=== PATIENT | female | born 1985 | race Caucasian/White ===

== ENCOUNTER → 2022-10-02 | Outpatient (CLI) | payer BC, SELFPAY ==
[2022-10-09 17:01] LABS: HPV APTIMA, High Risk Negative (Negative)
== END | disposition home or self-care (01) ==
PROVIDERS: Visit Provider Obstetrics & Gynecology
DX: Z12.4 Encounter for screening for malignant neoplasm of cervix (principal)
CPT/HCPCS: 87624; 88175; G0145

== ENCOUNTER → 2022-10-15 | Outpatient (CLI) | payer BC, SELFPAY ==
[2022-10-15 09:39] LABS: Cholesterol 168 mg/dL (200); Estradiol 23.9 pg/mL; Follicle Stimulating Hormone 17.9 mIU/mL; High Density Lipoprotein 64 mg/dL; Luteinizing Hormone 6.7 mIU/mL; Thyroid Stim Hormone (TSH) 1.41 uIU/mL (0.358-3.74); Triglycerides 76 mg/dL; Very Low Density Lipoprotein 15 mg/dL (5-40)
== END | disposition home or self-care (01) ==
LOC: LAB 07:56
PROVIDERS: Visit Provider Obstetrics & Gynecology
DX: Z13.220 Encounter for screening for lipoid disorders (principal); N95.1 Menopausal and female climacteric states
CPT/HCPCS: 36415; 80061; 82627; 82670; 83001; 83002; 84443; 82626

== ENCOUNTER 2022-12-10 02:51 | Emergency (ER) | payer BC, SELFPAY ==
[2022-12-10 02:53] VITALS: BP 123/79; PULSE 60; RESP 17; TEMP 36.6; O2SAT 100; BMI 24.8
--- NOTE | 2022-12-10 05:34 | EDS_ITS ---
HPI History of Present Illness Chief Complaint: Bite Narrative Narrative: Patient is a 37-year-old female presenting for concerns of bat exposure. Patient states she woke up tonight and noticed a bat in her room. She does not think she came in contact with it. She did notice what looked like bat droppings in her bathroom earlier today. Patient did develop a small abrasion/rash on the lateral aspect of her left ankle a month ago. She has an appointment this coming week to follow-up with dermatology. She is now concerned that that might have been a bat bite as well however she really does not know. She never been treated for rabies before. No other complaints at this time. States she is in her normal state of health. [facility] Home Medications NK 12/10/22 [History Last Taken Unknown] Allergy/AdvReac Type Severity Reaction Status Date / Time No Known Allergies Allergy Verified 12/10/22 02:52 Family History Grandfather Diabetes Prostate cancer Social History Smoking Status: Never smoker alcohol intake: current details: occasionally substance use type: does not use caffeine: Yes what type of physical activity do you participate in: running, yoga and aerobics frequency: 3-4 times per week seatbelt use: always do you feel safe at home: Yes additional social history: Single ROS ROS ED Constitutional Constitutional ED: Denies chills or fever(s) Eyes Eyes: Denies change in vision Respiratory/Chest Respiratory/Chest: Denies cough Gastrointestinal Gastrointestinal: Denies nausea or vomiting Musculoskeletal Musculoskeletal: Denies arthralgias or myalgias Integumentary Reports rash Neurologic Neurologic: Denies headache(s) Psychiatric Psychiatric: Denies anxiety EXAM Physical Exam Const Vital Signs: 12/10/22 02:53 Temperature 97.9 F Temperature Source Oral Pulse Rate 60 Respiratory Rate 17 Blood Pressure 123/79 H Blood Pressure Mean 93 Pulse Ox 100 Oxygen Delivery Method Room Air Positive well nourished and well developed General Appearance ED: well developed and NAD HEENT Reports moist mucous membranes Negative for trauma Eyes PERRL and EOMs intact bilaterally Neck supple Chest Wall inspection of chest normal and palpation of chest normal Resp normal respiratory effort Extremity normal to inspection General Extremety ED: Negative for edema General Extremity: Negative for edema Neuro oriented x3 Psych mental status grossly normal Skin Skin Narrative: Subcentimeter macule on the lateral malleolus of the right ankle. No associated cellulitic changes. Blanching. MDM MDM MDM Narrative Medical decision making narrative: Patient is evaluated after exposure to a bat in her house. She woke up with a bat in her bedroom. She has known bite from [employer]. I do not think the spot on her ankle from a month ago was associate with a bite as I think it be unlikely there is a bat living in her house for the past month that she had not noticed it. Rabies series is started and patient is given immunoglobulin as well. Given follow-up information. She verbalizes agreement understand this plan. Discharge Plan Triage Chief Complaint: Bite ED Provider: Mita Renee Dx/Rx/DC Orders Clinical Impression: Exposure to bat without known bite Instructions: Understanding Rabies Prescriptions: No Action NK Primary Care Provider: Care Physician,No Primary Referrals: Care Physician,No Primary [Primary Care Provider] - Disposition Disposition: Home, Self Care
[2022-12-10] MEDS: Rabies Vaccine,Human Diploid 2.5 UNITS Vial IM (06:00)
[2022-12-10] MEDS: Rabies Immune Globulin/PF 300 UNIT/ML, 5 ML VIAL 1530 UNIT IM (06:27)
[2022-12-10 07:09] VITALS: BP 107/57; PULSE 63; RESP 16; O2SAT 98
== END 2022-12-10 07:25 | disposition home or self-care (01) ==
PROVIDERS: Emergency Provider Emergency Medicine; Visit Provider Emergency Medicine
DX: Z20.3 Contact with and (suspected) exposure to rabies (principal); R21 Rash and other nonspecific skin eruption
CPT/HCPCS: 90675; 96372; 99282; 90375

== ENCOUNTER 2022-12-13 09:52 | Outpatient (REF) | payer BC, SELFPAY ==
[2022-12-13 09:54] VITALS: PULSE 78; RESP 16
[2022-12-13] MEDS: Rabies Vaccine,Human Diploid 2.5 UNITS Vial IM (10:18)
== END 2022-12-13 11:04 | disposition home or self-care (01) ==
LOC: ED 09:52
PROVIDERS: Visit Provider Emergency Medicine
DX: Z23 Encounter for immunization (principal)
CPT/HCPCS: 90675; 96372

== ENCOUNTER 2022-12-17 08:58 | Outpatient (CLI) | payer BC, SELFPAY ==
[2022-12-17 09:21] VITALS: BP 104/67; PULSE 58; O2SAT 100
[2022-12-17] MEDS: Rabies Vaccine,Human Diploid 2.5 UNITS Vial IM (09:22)
== END 2022-12-17 09:43 | disposition home or self-care (01) ==
LOC: ED 09:43
DX: Z23 Encounter for immunization (principal)
CPT/HCPCS: 90675; 96372

== ENCOUNTER 2022-12-24 08:38 | Outpatient (CLI) | payer BC, SELFPAY ==
[2022-12-24 08:39] VITALS: BMI 24.3
[2022-12-24] MEDS: Rabies Vaccine,Human Diploid 2.5 UNITS Vial IM (08:53)
--- NOTE | 2022-12-24 09:09 | ED.RN ---
pt with no signs of allergic reaction 15 minutes post injection.
== END 2022-12-24 09:12 | disposition home or self-care (01) ==
DX: Z23 Encounter for immunization (principal)
CPT/HCPCS: 90675; 96372

== ENCOUNTER → 2023-10-05 | Outpatient (CLI) | payer OTHER, SELFPAY ==
[2023-10-05 11:30] LABS: HIV - WCH Non-Reactive (Nonreactive)
[2023-10-07 16:09] LABS: HCV Quant. RNA PCR HCV Not Detected IU/mL (.)
[2023-10-08 06:09] LABS: Chlamydia By Nucleic Acid AMP Negative (Negative); Gonococcus By Nucleic Acid AMP Negative (Negative)
[2023-10-09 14:09] LABS: HPV APTIMA, High Risk Negative (Negative)
== END | disposition home or self-care (01) ==
PROVIDERS: Referring Provider Obstetrics & Gynecology; Visit Provider Obstetrics & Gynecology
DX: N76.0 Acute vaginitis (principal); Z20.2 Contact with and (suspected) exposure to infections with a predominantly sexual mode of transmission
CPT/HCPCS: 36415; 86703; 87077; 87081; 87186; 87491; 87522; 87591; 87624; 88175; G0145